=== PATIENT | female | born 1955 | race Caucasian/White ===

== ENCOUNTER → 2021-09-21 17:47 | Outpatient (CLI) | payer OTHER, SELFPAY ==
--- NOTE | ~2021-09-21 | XR_ITS ---
XR knee LT 2V DATE: 09/21/2021 18:37 INDICATION: Bilateral knee pain TECHNIQUE: AP and lateral views COMPARISON: None FINDINGS: There is prominent joint space narrowing and spurring at the patellofemoral compartment con sistent with severe osteoarthritis. There is mild loss of joint space in particular spurring at the m edial and lateral compartments. Diffuse osteopenia. No fracture or dislocation or joint effusion, periosteal reaction or bone destruction. No radiopaque intra-articular loose body or chondrocalcinosis is evident. IMPRESSION: Osteoarthritis, particularly at the patellofemoral compartment Osteopenia Reviewed, dictated and finalized at location A. URE PRESS SET UP OPERATOR
--- NOTE | ~2021-09-21 | XR_ITS ---
XR lumbar spine min 4V DATE: 09/21/2021 18:37 INDICATION: Low back pain. Lumbago. TECHNIQUE: AP, lateral, coned lateral lumbosacral views. Standing flexion and extension lateral views . COMPARISON: 05/04/2017 lumbar spine FINDINGS: There is diffuse osteopenia. There is slight levoscoliosis of the lumbar spine. There is normal alignment of the lumbar spine. No fracture or bone destruction. The lumbar pedicles are intact. There is approximately 3.5 mm anterolisthesis at L3-4 and flexion, virtually completely reduced in ex tension. There is severe degenerative disc disease at L4-5 and L5-S1. The sacroiliac joints are intact. Incidentally noted is a large calcified uterine fibroid measuring up to 7 cm transverse dimension. IMPRESSION: Osteopenia Slight levoscoliosis 3.5 mm anterolisthesis at L3-4 in flexion, largely reduced in extension Severe degenerative disc disease at L4-5 and L5-S1 Reviewed, dictated and finalized at location A. WARPER
--- NOTE | ~2021-09-21 | MR_ITS ---
EXAMINATION: MR lumbar spine wo con DATE: 09/21/2021 18:48 INDICATION: Low back pain radiates down left leg. TECHNIQUE: Magnetic resonance imaging (MRI) of the lumbar spine was performed without intravenous con trast. Sequences included sagittal T2-weighted FSE, sagittal T2-weighted FS FSE, sagittal T1-weighted FSE, and axial T2-weighted FSE. COMPARISON: Lumbar spine MRI 05/14/17, radiographs 09/21/2021 FINDINGS: Partially visualized are fibroids in the uterus. There is 3 mm retrolisthesis of L4 on L5. There is mild height loss of L5 vertebral body posteriorly. There is mildly decreased disc height at L3-L4 and severely decreased disc height at L4-L5 and L5-S1 with endplate remodeling. The distal spin al cord signal intensity is normal. The conus medullaris is at T12-L1. The following disc levels are specifically discussed: L1-L2: The disc does not extend beyond the endplate margin. There is no facet joint osteoarthritis. T here is no neural foraminal stenosis. There is no central canal stenosis. L2-L3: The disc is bulging. There is mild bilateral facet joint osteoarthritis. There is mild bilater al neural foraminal stenosis. There is mild central canal stenosis. L3-L4: The disc is bulging and has an annular fissure. There is moderate bilateral facet joint osteoa rthritis. There is mild right and moderate left neural foraminal stenosis. There is mild central michele l stenosis. L4-L5: The disc is bulging and has an annular fissure. There is severe right and moderate left facet joint osteoarthritis. There is moderate bilateral neural foraminal stenosis. There is mild central ca nal stenosis. L5-S1: The disc is bulging and has an annular fissure. There is severe bilateral facet joint osteoart hritis. There is mild bilateral neural foraminal stenosis. There is mild central canal stenosis. IMPRESSION: 1. Severe lower lumbar spondylosis, worsened from 05/14/17. 2. Uterine fibroids. Reviewed, dictated and finalized at location A. R BUSINESS DEVELOPER
--- NOTE | ~2021-09-21 | XR_ITS ---
XR knee RT 2V DATE: 09/21/2021 18:37 INDICATION: Bilateral knee pain TECHNIQUE: Standing AP and lateral views COMPARISON: None FINDINGS: There is moderate loss of medial compartment joint space height. There is mild periarticula r spurring of the patella. No fracture or dislocation or joint effusion. No periosteal reaction or bone destruction, radiopaque intra-articular loose body or chondrocalcinosis is evident. IMPRESSION: Osteoarthritis Reviewed, dictated and finalized at location A. ICAL SUPERVISOR IMPRESSION: Osteoarthritis
== END ==
PROVIDERS: PCP Nurse Practitioner Family
DX: M47.896 Other spondylosis, lumbar region (principal); D25.9 Leiomyoma of uterus, unspecified; M85.88 Other specified disorders of bone density and structure, other site; M51.37 Other intervertebral disc degeneration, lumbosacral region; M51.36 Other intervertebral disc degeneration, lumbar region; M85.862 Other specified disorders of bone density and structure, left lower leg; M17.0 Bilateral primary osteoarthritis of knee
CPT/HCPCS: 72110; 72148; 73560

== ENCOUNTER → 2022-03-11 12:55 | Outpatient (CLI) | payer MEDICARE, SELFPAY ==
--- NOTE | ~2022-03-11 | US_ITS ---
EXAMINATION: US transvaginal DATE: 03/11/2022 13:21 INDICATION: Uterine fibroid Comparison:Uterine fibroids TECHNIQUE: Multiple endovaginal sonographic images of the pelvis performed. FINDINGS: The uterus measures 6.6 x 3.2 x 3.6 cm. There are multiple uterine fibroids some of which a re partially calcified measuring up to 7.1 x 4.5 x 4.5 cm. The endometrial complex measures 5 mm. The ovaries are not visualized. There is no free fluid in the pelvis. There are no abnormal masses s een on either side. IMPRESSION: 1. Multiple uterine fibroids, largest measuring up to 7.1 cm maximum dimension. Reviewed, dictated and finalized at location B.
== END ==
PROVIDERS: PCP Nurse Practitioner Family; Visit Provider Nurse Practitioner Family
DX: D25.9 Leiomyoma of uterus, unspecified (principal)
CPT/HCPCS: 76830

== ENCOUNTER 2022-07-09 09:29 | Outpatient (CLI) | payer MEDICARE, SELFPAY ==
--- NOTE | ~2022-07-09 | MM_ITS ---
EXAMINATION: MM screening odalis BI w skye HISTORY: Screening TECHNIQUE: Craniocaudal and mediolateral oblique 3-D tomosynthesis images were obtained and synthetic 2-D images were generated. CAD analysis was submitted and interpreted. COMPARISON: Comparison to multiple prior studies sequentially, with oldest reviewed study dated 04/25. BREAST PARENCHYMAL COMPOSITION: There are scattered areas of fibroglandular density. FINDINGS: There is no evidence of suspicious mass, calcification, or architectural distortion to sugg est malignancy in either breast. There has been no suspicious interval change. IMPRESSION: 1. No mammographic evidence of malignancy. 2. Recommend routine screening mammography in one year. BI-RADS Category 1: Negative Reviewed, dictated and finalized at location B. S AND MARKETING COORDINATOR
== END 2022-07-09 09:30 | disposition home or self-care (01) ==
LOC: ANHIMG 09:30
PROVIDERS: PCP Nurse Practitioner Family; Visit Provider Nurse Practitioner Family
DX: Z12.31 Encounter for screening mammogram for malignant neoplasm of breast (principal)
CPT/HCPCS: 77063; 77067

== ENCOUNTER 2023-05-07 09:54 | Outpatient (CLI) | payer MEDICARE, SELFPAY ==
--- NOTE | ~2023-05-07 | XR_ITS ---
EXAMINATION: XR knee RT min 4V DATE: 05/07/2023 10:21 INDICATION: Right knee joint pain. TECHNIQUE: 4 views of right knee including standing views were obtained. COMPARISON: Right knee radiographs 09/21/2021 FINDINGS: Bone alignment is normal. No fracture. There is mild tricompartmental osteoarthritis. No kn ee joint effusion. IMPRESSION: 1. Mild right knee osteoarthritis. Reviewed, dictated and finalized at location A.
== END 2023-05-07 09:55 | disposition home or self-care (01) ==
PROVIDERS: PCP Nurse Practitioner Family; Visit Provider Nurse Practitioner Family
DX: M17.11 Unilateral primary osteoarthritis, right knee (principal)
CPT/HCPCS: 73564

== ENCOUNTER 2023-12-01 07:51 | Outpatient (CLI) | payer MEDICARE, SELFPAY ==
--- NOTE | ~2023-12-01 | MM_ITS ---
EXAMINATION: MM screening odalis BI w skye HISTORY: Screening mammogram TECHNIQUE: Craniocaudal and mediolateral oblique 3-D tomosynthesis images were obtained and synthetic 2-D images were generated. CAD analysis was submitted and interpreted. COMPARISON: 07/09/2022 bilateral screening mammogram BREAST PARENCHYMAL COMPOSITION: There are scattered areas of fibroglandular density. FINDINGS: Biopsy marker on the left; history of prior benign left breast biopsy. There is no evidence of suspicious mass, calcification, or architectural distortion to suggest malignancy in either breas t. There has been no suspicious interval change. IMPRESSION: 1. No mammographic evidence of malignancy. 2. Recommend routine screening mammography in one year. BI-RADS Category 1: Negative Reviewed, dictated and finalized at location B.
== END 2023-12-01 07:52 | disposition home or self-care (01) ==
PROVIDERS: PCP Nurse Practitioner Family; Visit Provider Nurse Practitioner Family
DX: Z12.31 Encounter for screening mammogram for malignant neoplasm of breast (principal)
CPT/HCPCS: 77063; 77067

== ENCOUNTER 2023-12-02 08:06 | Outpatient (CLI) | payer MEDICARE, SELFPAY ==
--- NOTE | ~2023-12-02 | US_ITS ---
Limited Abdominal Sonogram: Real-time sonographic imaging of the right upper quadrant was performed. Clinical History: Gallbladder polyp Findings: The liver appears normal with no evidence of mass lesion or bile duct dilatation. Main por selam vein demonstrates normal direction of flow. The gallbladder is well distended, and demonstrates a pparent 1.1 cm and 0.4 cm gallbladder wall polyps, which are not mobile and echogenic.. The common bi le duct measures 3 mm. The visualized pancreas, aorta, and IVC are unremarkable. Impression: Gallbladder wall polyps, as above, largest measuring 1.1 cm. Reviewed, dictated and finalized at location M. Impression: Gallbladder wall polyps, as above, largest measuring 1.1 cm.
== END 2023-12-02 08:07 ==
LOC: MICIMG 08:07
PROVIDERS: PCP Nurse Practitioner Family; Visit Provider Nurse Practitioner Family
DX: K82.4 Cholesterolosis of gallbladder (principal)
CPT/HCPCS: 76705

== ENCOUNTER 2024-03-20 09:30 | Emergency (ER) | payer MEDICARE, SELFPAY ==
[2024-03-20] VITALS (10 sets, daily range): BP systolic 104–121; BP diastolic 62–66; PULSE 82–96; RESP 12–18; TEMP 36.2; O2SAT 97–100
--- NOTE | ~2024-03-20 | XR_ITS ---
Clinical Indication: Chest pain PA and lateral views of the chest: Comparison: None Findings: The lungs are clear, without evidence of focal consolidation or pleural effusion. Cardiome diastinal silhouette is within normal limits. Bones and soft tissues are unremarkable. Impression: Normal chest. Reviewed, dictated and finalized at location . Impression: Normal chest.
--- NOTE | ~2024-03-20 | CT_ITS ---
Clinical Indication: Chest pain, recent surgery CT Scan of the Chest with Contrast: Technique: Contiguous sections were acquired throughout the chest after intravenous administration of 100 cc of Omnipaque 350. Dose reduction technique was used on this scan by utilizing automated expos ure control and iterative reconstruction technique. The dose-length product (DLP) was 368.24 mGy-cm. Findings: There is no evidence of any significant mediastinal, hilar or axillary lymphadenopathy. There is no f illing defect in the pulmonary arterial tree to suggest pulmonary embolus. There is no evidence of ao rtic dissection or aneurysm. There is no evidence of pleural or pericardial effusion. The lungs are clear. No pulmonary nodules or infiltrates are noted. Images through the upper abdomen reveal no abnormalities. Impression: No evidence of pulmonary embolus, aortic dissection, or aortic aneurysm. Clear lungs. Reviewed, dictated and finalized at [facility]. Impression: No evidence of pulmonary embolus, aortic dissection, or aortic aneurysm. Clear lungs.
--- NOTE | 2024-03-20 09:33 | ECG_ITS ---
Test Date: 2024-03-20 09:39:53 Measurements Intervals Finger Rate: 96 P: 48 SD: 139 QRS: 44 QRSD: 79 T: 61 QT: 318 QTc: 403 Interpretive Statements SINUS RHYTHM No previous ECG available for comparison Electronically Signed On 03-20-2024 16:12:42 CDT by Vicki De Leon M.D.
[2024-03-20 09:52] LABS: Basophils Absolute Auto 0.1 K/mm3 (0.0-0.1); Basophils Percent Auto 0.9 % (0.2-1.2); Eosinophils Absolute Auto 0.4 K/mm3 (0-0.3); Eosinophils Percent Auto 5.6 % (0-4.4); Hemoglobin 12.7 g/dL (12.0-15.0); Immature Granulocyte Absolute 0.01 K/mm3 (0.00-0.031); Immature Granulocyte Percent A 0.1 % (0-0.5); Lymphocytes Percent Auto 39.3 % (18.3-44.2); Mean Corpuscular HGB Conc 32.6 g/dl (32-36); Mean Corpuscular Hemoglobin 27.3 pg (26-34); Mean Corpuscular Volume 83.9 fl (80-100); Mean Platelet Volume 9.5 fl (7.4-10.4); Monocytes Absolute Auto 0.3 K/mm3 (0.1-0.6); Monocytes Percent Auto 4.6 % (2.6-8.5); Neutrophils Absolute Auto 3.6 K/mm3 (1.3-6.7); Neutrophils Percent Auto 49.5 % (45.5-73.1); Platelet Count Result 304 k/mm3 (150-375); Red Blood Count 4.65 M/mm3 (4.2-5.4); Red Cell Distribution Width 17.2 % (11.5-14.5); White Blood Count 7.4 K/mm3 (4.5-10.0)
[2024-03-20 10:06] LABS: Prothrombin Time 13.5 Seconds (11.1-14.7)
[2024-03-20 10:07] LABS: Partial Thromboplastin Time 26.1 Seconds (22.3-36.8)
[2024-03-20 10:08] LABS: Alanine Aminotransferase 18 U/L (6-35); Albumin Level 4.6 g/dL (3.5-5.1); Alkaline Phosphatase 76 U/L (38-126); Anion Gap 13 mmol/L (4-12); Aspartate Amino Transferase 22 U/L (14-36); Bilirubin,Total 0.4 mg/dL (0.2-1.3); Blood Urea Nitrogen 26 mg/dL (7-17); Calcium 9.3 mg/dL (8.4-10.2); Carbon Dioxide 24 mmol/L (22-30); Chloride 99 mmol/L (98-107); Estimated CRCL calculation 33 ml/min; Estimated Glomerular Filt Rate 38; Glucose 168 mg/dL (65-110); Lipase 411 U/L (23-300); Potassium 4.4 mmol/L (3.4-5.0); Sodium 136 mmol/L (137-145)
[2024-03-20 10:19] LABS: Troponin I < 0.012 ng/mL (0.000-0.034)
--- NOTE | 2024-03-20 11:25 | PC.NURSE ---
Pt reports recently getting 2 iron transfusions, within 5 days of each other, the last one on 02/28.
--- NOTE | 2024-03-20 11:26 | PC.NURSE ---
Pt reports having her gallbladder removed on 03/08.
--- NOTE | 2024-03-20 11:42 | ED.CHESTPAIN ---
HPI - Chest Pain General Chief Complaint: Chest Pain Stated Complaint: chest pain/ jaw pain Time Seen by Provider: 03/20/24 11:32 History of Present Illness HPI narrative: This is a 68-year-old female with a past medical history significant for hypertension, hyperlipidemia, diabetes. Today she presents to the emergency department for evaluation of chest pain. Chest pain is sporadic in nature not brought on by any kind of exertion, eating, positional changes. She states that has been present about 2 weeks and lasts several seconds before going away spontaneously. No associated difficulty breathing, back pain, abdominal pain. She recently underwent a laparoscopic cholecystectomy 2 weeks prior prior to the onset of her symptoms. She does endorse some nauseousness occasion without vomiting. She states that the pain started somewhat radiating into her jaw and she saw her dentist who states she does not have any kind of issues with her teeth at this time. Denies any other recent illnesses or procedures. No history of DVT or PE does not take any blood thinner medications. Related Data Home Medications Medication Instructions Recorded Confirmed glimepiride 4 mg tablet 4 mg PO QAM 03/25/22 11/18/23 metformin 500 mg tablet,extended 1,000 mg PO BID 10/14/23 11/18/23 release 24 hr Allergies Allergy/AdvReac Type Severity Reaction Status Date / Time No Known Allergies Allergy Mild Verified 03/20/24 09:31 Review of Systems Review of Systems: As [facility] Past Medical History Medical History Anxiety Degenerative joint disease of knee Endometrial cancer determined by uterine biopsy Essential hypertension Gynecologic exam normal High blood cholesterol High blood pressure Hyperlipidemia Latent autoimmune diabetes in adults, managed as type 2 Left knee pain Lesion of [place] kidney Type 2 diabetes mellitus with hyperglycemia Surgical History Surgical History History of delivery History of tubal ligation Family History Family History Other Breast cancer Cerebrovascular accident Hypertension Social History Social History Smoking status: Never smoker Alcohol intake: never Substance use: never Substance use type: does not use Do You Feel Safe in your Home?: Yes Lack of Transportation: No Lack of Food: Never True Current Housing: I Have Housing Concerned About Future Housing: No Difficulty Paying Gas/Electric Bills: No Difficulty Paying for Meds: No Currently Unemployed: No Education: Don't Know Difficulty w/ Childcare or Family Care: No Living arrangements: with family Occupation/Education: occupation 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 Mucous membranes moist. NECK: Supple. CHEST: [Clear to auscultation. No respiratory distress.] HEART: [Regular rate and rhythm]. No murmur heard. [Normal peripheral pulses.] ABDOMEN: [Soft, nondistended], [nontender], [No rigidity or guarding] some bruising noted in the abdominal wall near the incision sites but the incisions are clean, dry, intact and well healing without any tenderness or drainage EXTREMITIES: Normal range of motion. [No edema.] SKIN: Warm, dry, no rash. NEURO: [No focal deficits]. Alert and oriented [x3.] PSYCH: [Normal mood and affect.]
[2024-03-20] MEDS: LACTATED RINGERS 1,000 ML 999 ML IV CONT (11:49)
--- NOTE | 2024-03-20 11:52 | PC.NURSE ---
Pt refusing Aspirin at this time. Pt states she is cautious about her kidneys. EDP Dr. Jami guzmán.
--- NOTE | 2024-03-20 12:48 | ECG_ITS ---
Test Date: 2024-03-20 12:50:31 Measurements Intervals [place] Rate: 81 P: 19 [place]: 183 QRS: 35 QRSD: 80 T: 40 QT: 363 QTc: 421 Interpretive Statements SINUS RHYTHM WITHIN NORMAL LIMITS Compared to ECG 03/20/2024 09:39:53 NO SIGNIFICANT DIFFERENCE Electronically Signed On 03-20-2024 18:00:03 CDT by Dalton Pozo M.D.
[2024-03-20 13:16] LABS: Troponin I < 0.012 ng/mL (0.000-0.034)
[2024-03-20 17:52] LABS: Glucose Point of Care 65 mg/dl (65-105)
== END 2024-03-20 14:47 | disposition home or self-care (01) ==
PROVIDERS: Emergency Provider Student in an Organized Health Care Education/Training Program; PCP Nurse Practitioner Family
DX: R07.9 Chest pain, unspecified (principal); I10 Essential (primary) hypertension; E13.9 Other specified diabetes mellitus without complications; E78.00 Pure hypercholesterolemia, unspecified; M17.9 Osteoarthritis of knee, unspecified; Z79.84 Long term (current) use of oral hypoglycemic drugs; Z79.85 Long-term (current) use of injectable non-insulin antidiabetic drugs; Z79.899 Other long term (current) drug therapy
CPT/HCPCS: 36415; 71046; 71275; 80053; 82948; 83690; 84484; 85025; 85610; 85730; 93005; 96360; 99284; J7120; Q9967

== ENCOUNTER 2024-06-29 09:19 | Emergency (ER) | payer MEDICARE, SELFPAY ==
[2024-06-29 09:30] VITALS: BP 96/61; PULSE 90; RESP 18; TEMP 36.6; O2SAT 100
--- NOTE | 2024-06-29 09:54 | ED_ITS ---
HPI - URI/Sore Throat General Chief Complaint: Upper Respiratory Infection Stated Complaint: Sinus Time Seen by Provider: 06/29/24 09:54 Source: patient, RN notes reviewed and old records reviewed Mode of arrival: ambulatory Limitations: no limitations History of Present Illness HPI Narrative: Patient presents with complaints of 3 weeks of sinus pain and pressure. She reports postnasal drainage is causing sore throat. She does have a slight cough. She has been taking [place] for her symptoms for couple of days with minimal relief. She denies fever. She does report lack of energy. She has no other complaints. She is in no distress at this time Related Data Home Medications Medication Instructions Recorded Confirmed metformin 500 mg tablet,extended 1,000 mg PO BID 10/14/23 06/29/24 release 24 hr Allergies Allergy/AdvReac Type Severity Reaction Status Date / Time No Known Allergies Allergy Mild Verified 06/29/24 09:34 Review of Systems Review of Systems: All systems reviewed & are unremarkable except as noted in HPI and below Constitutional: Constitutional: Reports no additional constitutional complaints and Reports lethargy ENT: Reports system reviewed and no additional complaints, except as documented, Reports as per HPI, Reports sinus pain, Reports sinus pressure and Reports sore throat Cardiovascular: Cardiovascular: Reports no additional cardiovascular complaints Respiratory: Respiratory: Reports no additional respiratory complaints and Reports cough Gastrointestinal: Gastrointestinal: Reports no additional gastrointestinal complaints PMFSH Past Medical History Medical History Anxiety Degenerative joint disease of knee Endometrial cancer determined by uterine biopsy Essential hypertension Gynecologic exam normal High blood cholesterol High blood pressure Hyperlipidemia Latent autoimmune diabetes in adults, managed as type 2 Left knee pain Lesion of [place] kidney Type 2 diabetes mellitus with hyperglycemia Surgical History Surgical History History of delivery History of tubal ligation Hx laparoscopic cholecystectomy Family History Family History Other Breast cancer Cerebrovascular accident Hypertension Social History Social History Social History: 04/30/24 patient declined SDOH Smoking status: Never smoker Alcohol intake: never Substance use: never Substance use type: does not use Do You Feel Safe in your Home?: Yes Lack of Transportation: No Lack of Food: Never True Current Housing: I Have Housing Concerned About Future Housing: No Difficulty Paying Gas/Electric Bills: No Difficulty Paying for Meds: No Currently Unemployed: No Education: Don't Know Difficulty w/ Childcare or Family Care: No Living arrangements: with family Occupation/Education: occupation 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 There is no relevant family history pertinent to the patient complaint. Exam Const: General: cooperative, no acute distress, alert and awake Orientation/consciousness: oriented to person, oriented to place and oriented to time HENMT: Head: normal to inspection Ears: TM abnormal with fluid behind the TM on the left Face/Nose/Sinus: Abnormal mucous membranes and turbinates present boggy and Facial tenderness on exam of face and sinuses Mouth: Yes moist mucous membranes Resp: Effort & Inspection: normal respiratory effort and able to speak in complete sentences Auscultation: clear to auscultation bilaterally, no crackles, no rales, no rhonchi and no wheezes Cardio: Palpation: normal PMI Rate: regular rate Rhythm: regular rhythm Heart sounds: S1 normal heart sound present and S2 normal heart sound present Neuro: General: oriented to person, oriented to place and oriented to time Cranial nerves: Yes CN's II-XII intact bilaterally Psych: Appearance: grossly normal Thought process: Normal thought process present Insight: Good insight present (Psych) Judgement: Good judgement present (Psych) Course Course Level of Care: Express Care Visit Vital Signs Vital signs: Vital Signs Temperature 97.9 F 06/29/24 09:30 Pulse Rate 90 06/29/24 09:30 Respiratory Rate 18 06/29/24 09:30 Blood Pressure 96/61 L 06/29/24 09:30 Pulse Oximetry 100 06/29/24 09:30 Oxygen Delivery Room Air 06/29/24 09:30 Temperature 97.9 F 06/29/24 09:30 Pulse Rate 90 06/29/24 09:30 Respiratory Rate 18 06/29/24 09:30 Blood Pressure 96/61 L 06/29/24 09:30 Pulse Oximetry 100 06/29/24 09:30 Oxygen Delivery Room Air 06/29/24 09:30 Reviewed MDM - URI/Sore Throat MDM Narrative Medical decision making narrative: Patient with 3 weeks of symptoms, treated sinusitis. Patient nontoxic appearing, stable for discharge home on p.o. antibiotic therapy Differential Diagnosis Differential diagnosis: Likely upper respiratory infection, otitis media and sinusitis Medical Records Attestation: I reviewed the patient's medical records. Discharge Plan Discharge Clinical Impression: Sinusitis Qualifiers: Sinusitis location: maxillary Chronicity: acute Recurrence: not specified as recurrent Qualified Code(s): J01.00 - Acute maxillary sinusitis, unspecified Patient Disposition: Home, Self-Care Condition: Stable Instructions: Antibiotic Form, Sinusitis (ED) Additional Instructions: Take medications as prescribed. Use Flonase per package instructions. Follow- up with primary care provider. Emergency department for new or worse symptoms Patient Language: Georgian Prescriptions: New amoxicillin-pot clavulanate 875-125 mg tablet 1 tablet PO Q12H Qty: 20 0RF No Action metformin 500 mg tablet extended release 24 hr 1,000 mg PO BID pravastatin 40 mg tablet 40 mg PO DAILY Qty: 90 3RF losartan 100 mg tablet 100 mg PO DAILY Qty: 90 3RF Mounjaro 12.5 mg/0.5 mL pen injector 12.5 mg subcut WEEKLY Qty: 2 2RF glimepiride 4 mg tablet 4 mg PO .q hs Qty: 90 1RF Hold Instructions: Patient Condition Rx Instructions: administer with breakfast escitalopram oxalate 10 mg tablet 10 mg PO DAILY Qty: 90 1RF dapagliflozin propanediol [Farxiga] 10 mg tablet See Rx Instructions .ROUTE .COMPLEX Qty: 90 3RF Dose Instruction: TAKE 1 TABLET BY MOUTH DAILY Rx Instructions: TAKE 1 TABLET BY MOUTH DAILY hydrochlorothiazide 12.5 mg capsule 12.5 mg PO DAILY Qty: 90 1RF Follow-up/Referrals: Rose Bright APRN [Primary Care Provider] - 2 Weeks Time of Disposition: 10:15
== END 2024-06-29 10:25 | disposition home or self-care (01) ==
PROVIDERS: Emergency Provider Nurse Practitioner Family; PCP Nurse Practitioner Family
DX: J01.00 Acute maxillary sinusitis, unspecified (principal); I10 Essential (primary) hypertension; E78.00 Pure hypercholesterolemia, unspecified; E11.9 Type 2 diabetes mellitus without complications; Z79.84 Long term (current) use of oral hypoglycemic drugs; Z85.42 Personal history of malignant neoplasm of other parts of uterus
CPT/HCPCS: 99213; G0463

== ENCOUNTER 2025-01-15 09:12 | Outpatient (CLI) | payer MEDICARE, SELFPAY ==
--- NOTE | ~2025-01-15 | MM_ITS ---
EXAMINATION: MM screening odalis BI w skye HISTORY: Screening mammogram TECHNIQUE: Craniocaudal and mediolateral oblique 3-D tomosynthesis images were obtained and synthetic 2-D images were generated. CAD analysis was submitted and interpreted. COMPARISON: 12/01/2023, 07/09/2022 BREAST PARENCHYMAL COMPOSITION:Dense: The breasts are heterogeneously dense, which may obscure small masses. FINDINGS: No suspicious mass, calcification, or architectural distortion are identified in either pepper ast to suggest malignancy. There has been no suspicious interval change. IMPRESSION: No mammographic evidence of malignancy. Recommend routine screening mammography in one year. BI-RADS Category 1: Negative Reviewed, dictated and finalized at location .
== END 2025-01-15 09:13 | disposition home or self-care (01) ==
LOC: ANHIMG 09:13
PROVIDERS: PCP Nurse Practitioner Family; Visit Provider Nurse Practitioner Family
DX: Z12.31 Encounter for screening mammogram for malignant neoplasm of breast (principal)
CPT/HCPCS: 77063; 77067

== ENCOUNTER 2025-02-17 09:57 | Emergency (ER) | payer MEDICARE, SELFPAY ==
--- NOTE | 2025-02-17 10:06 | ED_ITS ---
HPI - Wound/Laceration General Chief Complaint: Wound/Laceration Stated Complaint: cut on left finger Time Seen by Provider: 02/17/25 10:08 Source: patient, RN notes reviewed and old records reviewed Mode of arrival: ambulatory Limitations: no limitations History of Present Illness HPI narrative: 61-year-old female presents to the [facility] with a laceration to the left ring finger. States it occurred approximately 8:00 p.m. last night approximately 14 hours prior to arrival. Unknown last Tdap. Bleeding is controlled. Patient reports that last night she was reaching into a drawer and cut herself on a knife. Applied Neosporin and a bandage to the area Related Data Allergies Allergy/AdvReac Type Severity Reaction Status Date / Time No Known Allergies Allergy Mild Verified 02/17/25 10:31 Review of Systems Review of Systems: All systems reviewed & are unremarkable except as noted in HPI and below Constitutional: Constitutional: Reports no additional constitutional complaints Musculoskeletal: Musculoskeletal: Reports as per HPI Integumentary/Breasts: Skin/Breast: Reports as per HPI PMFSH Past Medical History Medical History Gynecologic exam normal Essential hypertension Hyperlipidemia Lesion of curyung kidney Type 2 diabetes mellitus with hyperglycemia Anxiety Latent autoimmune diabetes in adults, managed as type 2 Degenerative joint disease of knee Left knee pain Endometrial cancer determined by uterine biopsy High blood cholesterol High blood pressure Surgical History Surgical History Hx laparoscopic cholecystectomy History of tubal ligation History of delivery Family History Family History Other Breast cancer Cerebrovascular accident Hypertension Social History Social History Social History: 09/11/24 patient declined SDSC Smoking status: Never smoker Alcohol intake: never Substance use: never Substance use type: does not use Do You Feel Safe in your Home?: Yes Lack of Transportation: No Lack of Food: Never True Current Housing: I Have Housing Concerned About Future Housing: No Difficulty Paying Gas/Electric Bills: No Difficulty Paying for Meds: No Currently Unemployed: No Education: Don't Know Difficulty w/ Childcare or Family Care: No Living arrangements: with family Occupation/Education: occupation 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 There is no relevant family history pertinent to the patient complaint. Exam Const: General: cooperative, healthy appearing, comfortable, no acute distress, well developed, alert and well nourished Nutritional Appearance: well nourished Orientation/consciousness: patient oriented x3 Limitations: no limitations HENMT: Head: normal to inspection Eyes: General: appearance normal, both eyes and all related structures Alig nment and Position: alignment normal Neck: Neck: normal visual inspection, full ROM, no lymphadenopathy and no meningeal signs Chest: Chest palpation & inspection: normal inspection of the chest Resp: Effort & Inspection: normal respiratory effort and able to speak in complete sentences Cardio: Rate: regular rate Skin: General skin exam: normal color and no rashes or lesions noted Wounds: wounds noted Other: Flap of skin to the lateral aspect of the 4th finger left hand. The palmar aspect 2 cm open area. Bleeding controlled. Neuro: General: patient oriented x3, gait normal, moves all extremities and no meningeal signs Cognition (Neuro): normal cognition Speech: normal speech Gait exam (Neuro): Normal gait present Extrem: General: normal to inspection, full ROM, capillary refill normal and normal gait Left upper extremity: hand laceration Other: Full range of motion to the PIP DIP Psych: Appearance: grossly normal and well kempt Mental Status: mental status grossly normal Speech and movement: Normal speech and movement present and Clear speech present Affect: normal affect Attitude: cooperative Course Course Level of Care: Express Care Visit Vital Signs Vital signs: Vital Signs Temperature 98.3 F 02/17/25 10:08 Pulse Rate 82 02/17/25 10:08 Respiratory Rate 16 02/17/25 10:08 Blood Pressure 131/66 02/17/25 10:08 Pulse Oximetry 100 02/17/25 10:08 Oxygen Delivery Room Air 02/17/25 10:08 Temperature 98.3 F 02/17/25 10:08 Pulse Rate 82 02/17/25 10:08 Respiratory Rate 16 02/17/25 10:08 Blood Pressure 131/66 02/17/25 10:08 Pulse Oximetry 100 02/17/25 10:08 Oxygen Delivery Room Air 02/17/25 10:08 Reviewed Procedures Laceration Laceration 1: Date: 02/17/25 Time: 10:45 Site: hand Side (If applicable): left Size (cm): 2 Description: linear Depth: simple, single layer Local Anesthetic: lidocaine 1% Amount of anesthesia used (mL): 3 Pre-repair: wound explored and irrigated (200) ====== Skin Level ====== Skin layer closed with: nylon Size (cm): 5-0 Number of sutures: 2 Technique: simple, interrupted ====== Subcutaneous Layer ====== ====== Muscle Layer ====== ====== Tendon Layer ====== Dressing: Due to the nature of the wound, gaping was discussed brain the edges closer together for better chance of healing. Wound had been open for 14 hours. Irrigated and soaked with wound cleanser and saline. Discussed procedure of bringing the wound together, not completely closing due to risk of infection, verbal consent obtained. Base of finger cleaned with Betadine, digital block performed. Anesthesia achieved. Had 2 sutures placed without issue. Brought edges together but not completely closed. Patient tolerated procedure well MDM - Wound/Laceration MDM Narrative Medical decision making narrative: Patient sitting in exam room. Patient presents with laceration to the finger Unknown last Tdap, Tdap updated Placed 2 sutures to bring wound closer together for better chance of healing but not completely close due to risk of infection Patient is appropriate for outpatient treatment with close follow-up Discharge instructions reviewed with patient, as well as provided in writing per nursing staff. The instructions also include specific and strict return/GO TO THE ER as well as f/u information. All questions have been answered, and the patient deny any further questions with discharge and discharge plan. Some parts of this dictation were generated by voice recognition software and may contain typographical and/or grammatical inaccuracies. Differential Diagnosis Differential diagnosis: Likely laceration, abrasion and avulsion of skin Critical Care Time Critical Care Time Critical Care Time: No Discharge Plan Discharge Clinical Impression: Finger laceration Patient Disposition: Home Condition: Stable Instructions: Antibiotic Form, Finger Laceration (ED) Additional Instructions: Wash area twice daily with warm soapy water, pat dry. When not at home keep it covered. When at home try leaving open to air couple hours a day Take antibiotic as prescribed reduce the chances of infection Follow-up with primary care provider in 10-14 days for suture removal Patient Language: Slovak Prescriptions: New cephalexin 500 mg capsule 500 mg PO Q12H Qty: 14 0RF No Action dapagliflozin propanediol [Farxiga] 10 mg tablet See Rx Instructions .ROUTE .COMPLEX Qty: 90 3RF Dose Instruction: TAKE 1 TABLET BY MOUTH DAILY Rx Instructions: TAKE 1 TABLET BY MOUTH DAILY pravastatin 40 mg tablet 40 mg PO DAILY Qty: 90 3RF losartan 100 mg tablet 100 mg PO DAILY Qty: 90 3RF Mounjaro 12.5 mg/0.5 mL pen injector 12.5 mg subcut WEEKLY Qty: 6 2RF hydroxyzine HCl 25 mg tablet 25 mg PO TID PRN (Reason: anxiety) Qty: 90 2RF glimepiride 4 mg tablet 4 mg PO .q hs Qty: 90 1RF Rx Instructions: administer with breakfast escitalopram oxalate 10 mg tablet 10 mg PO DAILY Qty: 90 1RF metformin 500 mg tablet extended release 24 hr 1,000 mg PO DAILY Qty: 360 0RF hydrochlorothiazide 12.5 mg capsule 12.5 mg PO DAILY Qty: 90 1RF Follow-up/Referrals: Rose Bright APRN [Primary Care Provider] - 2 Weeks ([facility] care follow up Suture removal) Time of Disposition: 10:59
[2025-02-17 10:08] VITALS: BP 131/66; PULSE 82; RESP 16; TEMP 36.8; O2SAT 100
[2025-02-17] MEDS: TETANUS/DIPHTHERIA TOXOIDS ADSORB 0.5 ML SYRINGE (*BKC) IM (10:26)
[2025-02-17] MEDS: LIDOCAINE 1% LOCAL INJ 2 ML AMPUL 4 ML INFILTRATE (11:10)
== END 2025-02-17 11:00 | disposition home or self-care (01) ==
PROVIDERS: Emergency Provider Nurse Practitioner; PCP Nurse Practitioner Family
DX: S61.215A Laceration without foreign body of left ring finger without damage to nail, initial encounter (principal); W26.0XXA Contact with knife, initial encounter; Z23 Encounter for immunization; I10 Essential (primary) hypertension; E78.5 Hyperlipidemia, unspecified; E78.00 Pure hypercholesterolemia, unspecified; Z85.42 Personal history of malignant neoplasm of other parts of uterus; E13.9 Other specified diabetes mellitus without complications; Z79.84 Long term (current) use of oral hypoglycemic drugs; Z79.85 Long-term (current) use of injectable non-insulin antidiabetic drugs; F41.9 Anxiety disorder, unspecified
CPT/HCPCS: 12001; 90471; 90714; 99213; G0463; J2003

== ENCOUNTER 2025-04-29 09:43 | Outpatient (CLI) | payer MEDICARE, SELFPAY ==
--- OUTSIDE RECORDS SUMMARY | 2000-11-07 11:00 | XMS_ITS | Continuity of Care Document ---
Author Organization [facility] Address [address] [place] [address] Phone Care Team Providers Care Loan Documents Closer Name Role Phone Riya Coyle Unavailable Unavailable Advance Directives Directive Yes / No Effective Date File Name No Information Encounters Encounter Description Practice Location Reason(s) For Visit Diagnoses Date Provider Providers Copied on Encounter [facility], [address] [place], [place], [id number], [place] tel:[phone] [facility] No Information [address] Jonna Ritter. [address] , [address], [place], [address], [place]. tel:[phone] Family History Family Member Type Diagnosis Age At Onset No Information Payers Payer name Insurance type Covered alliance party ID Authoriza tion(s) No Information Social History Type Description Quantity Date Captured Comments Sex Female Smoking Status No Information Chief Complaint And Reason For Visit No Information Reason For Referral Reason For Referral No Information History Of Present Illness Encounter Date Complaint History Of Prese nt Illness No Information Functional Status Date Functional Assessmen t No Information Instructions Date Instruction Additional Infor mation No Information Assessments Type Assessment Date No Information Patient Care Teams Name Effective Dates (start - stop) Status Members No Information
--- NOTE | ~2025-04-29 | MR_ITS ---
EXAMINATION: MR abdomen wo/w con DATE: 04/29/2025 10:50 INDICATION: Left kidney mass. TECHNIQUE: Magnetic resonance imaging (MRI) of the abdomen was performed without and with 14 mL MultiHance intravenous contrast. COMPARISON: Abdomen MRI 05/11/2024 FINDINGS: The liver and spleen are normal. The gallbladder is absent. The pancreas, adrenal glands, and right kidney are normal. There is cortical thinning of left kidney. There is a 5 mm cyst in left kidney. There are no dilated loops of bowel. There are no pathologically enlarged lymph nodes. There is no free intraperitoneal fluid. IMPRESSION: 1. Small benign cyst in left kidney. Reviewed, dictated and finalized at location E.
--- OUTSIDE RECORDS SUMMARY | 2025-04-29 10:39 | XMS_ITS | Clinical Summary ---
Author Organization [place] [id number] [facility] Address [address] [place] [address] Care Team Providers Care White Shoe Examiner Name Role Phone Rose Bright [employer] Primary Care Provider + Allergies No known active allergies Medications losartan (COZAAR) 100 mg tablet Take 1 tablet (100 mg total) by mouth daily 3 Active metFORMIN XR (GLUCOPHAGE XR) 500 mg 24 hr tablet Take 1 tablet (500 mg total) by mouth daily with breakfast 3 Active pravastatin (PRAVACHOL) 40 mg tablet Take 1 tablet (40 mg total) by mouth daily 4 Active escitalopram (LEXAPRO) 10 mg tablet Take 1 tablet (10 mg total) by mouth daily 4 Active hydroCHLOROthia zide (MICROZIDE) 12.5 mg capsule Take 1 capsule (12.5 mg total) by mouth daily 4 Active Farxiga 10 mg tablet Take 1 tablet (10 mg total) by mouth daily 4 Active tirzepatide (MOUNJARO) 10 mg/0.5 mL pen injector once a week 4 Active cholecalciferol (VITAMIN D-3) 2000 unit capsule Take 2 capsules (4,000 Units total) by mouth daily Active glimepiride (AMARYL) 4 mg tabletIndicatio ns:type 2 diabetes mellitus Take 1 tablet (4 mg total) by mouth daily before breakfast Active Active Problems Problem Noted Date Diagnosed Date Iron deficiency anemia, unspecified 02/09/2024 Anemia in stage 3 chronic kidney disease 024 Renal cyst, left 11/11/20232023 Overview (06/05/2024): 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 Surgical History Surgery Date Site/Laterality Comments CARPAL TUNNEL RELEASE 07/25/2013 - 07/24/2014 SECTION 07/25/1988 - 07/24/1989 Medical History Medical History Date Comments Diabetes mellitus Chronic renal failure Family History Medical History Relation Name Comments Cancer Maternal Grandfather Stroke Maternal Grandmother Cancer Mother's Sister Relation Name Status Comments Maternal Grandfather Maternal Grandmother Mother's Sister Social History Tobacco Use Types Packs/Day Years Used Date Smoking Tobacco: Never Passive Smoke Exposure: Never Smokeless Tobacco: Never Tobacco Cessation:Counseling Given: Not Answered AUDIT-C Answer Date Recorded Q1: How often do you have a drink containing alc ohol? 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 Gender Identity Not on file Sexual Orientation Not on file Obstetrics History Last Filed Vital Signs Vital Sign Reading Time Taken Comments Blood Pressure 148/66 02/29/2024 9:20 AM CDT Pulse 75 02/29/2024 9:20 AM CDT Temperature 36.7 C (98.1 F) 02/29/2024 8:05 AM CDT Respiratory Rate 18 02/29/2024 9:05 AM CDT Oxygen Saturation 100% 02/29/2024 9:05 AM CDT Inhaled Oxygen Concentration - - Weight 69.9 kg (154 lb 1.6 oz) 05/11/2024 9:28 A M CDT Height 160 cm (5' 3) 05/11/2024 9:28 AM CDT Body Mass Index 27.3 05/11/2024 9:28 AM CDT Plan of Treatment Health Maintenance Due Date Last Done Comments Breast Cancer Screening-Mammogram 1955 Colon Cancer Screening-Colonoscopy 1955 Depression Screening 1956 Fall Risk Assessment 1955 Hepatitis C Screening 1956 Osteoporosis Screening-Bone Density Scan 1956 DTaP/Tdap/Td Vaccine (1 - Tdap) 12/18/1967 Hepatitis B Screening 1974 Pneumococcal vaccine 65+ (1 of 1 - PCV) 2006 Zoster Vaccine (1 of 2) 2006 Well Visit 65+ 2021 Covid-19 Vaccine (4 - 2024-2 6 season) 2025 07/30/2023, 03/06/2022, 10/02/2020 Influenza Vaccine (#1) 2025 , 05/28/2021, 05/16/2020, Additional history exists Insurance Care Teams White Shoe Examiner Relationship Specialty Start Date End Date Rose Bright NP PCP - General Nurse Practitioner 08/17/23
--- OUTSIDE RECORDS SUMMARY | 2025-04-29 10:39 | XMS_ITS | Clinical Summary ---
Author Organization [facility] Address [facility] [place] [address] Care Team Providers Care Websphere Commerce Architect Name Role Phone Nava Medley MD Primary Care Provider [phone] Allergies No known active allergies Medications FARXIGA 10 MG tablet Take 1 tablet (10 mg total) by mouth daily. 4 Active metFORMIN ER (GLUCOPHAGE-XR) 500 MG 24 hr tablet Take 2 tablets (1,000 mg total) by mouth 2 (two) times daily. Active pravastatin (PRAVACHOL) 40 MG tablet Take 1 tablet (40 mg total) by mouth daily. 4 Active hydroCHLOROthia zide (MICROZIDE) 12.5 MG capsule Take 1 capsule (12.5 mg total) by mouth daily. 4 Active losartan (COZAAR) 100 MG tablet Take 1 tablet (100 mg total) by mouth daily. 3 Active escitalopram (LEXAPRO) 10 MG tablet Take 1 tablet (10 mg total) by mouth daily. 4 Active MOUNJARO 10 MG/0.5ML injection once a week. Active HYDROcodone-julio césar taminophen (NORCO) 5-325 MG tabletIndicatio ns:Acute Pain < 7 Day Supply Take 1 tablet by mouth every 6 (six) hours as needed for Pain. Indications: Acute Pain < 7 Day Supply For Moderate Pain 8 tablet 4 Active Additional Information Patient not taking.Reported on 03/23/2024 Active Problems Problem Noted Date Diagnosed Date Gallbladder polyp 01/11/2024 Family History Medical History Relation Comments Breast Cancer Maternal Aunt Bone cancer Maternal Grandfather Relation Status Comments Maternal Aunt Maternal Grandfather Social History Tobacco Use Types Packs/Day Years Used Date Smoking Tobacco: Never Smokeless Tobacco: Never Tobacco Cessation:Counseling Given: Not Answered Alcohol Use Standard Drinks/Week Comments Never 0 (1 standard drink = 0.6 oz pur e alcohol) Comments No Sex and Gender Information Value Date Recorded Sex Assigned at Not on file Legal Sex Female 10:51 AM CDT Gender Identity Not on file Sexual Orientation Not on file Last Filed Vital Signs Vital Sign Reading Time Taken Comments Blood Pressure 125/76 03/23/2024 12:46 PM CDT Pulse 81 03/23/2024 12:46 PM CDT Temperature 36.6 C (97.9 F) 03/23/2024 12:46 PM CDT Respiratory Rate 16 03/23/2024 12:46 PM CDT Oxygen Saturation 100% 03/23/2024 12:46 PM CDT Inhaled Oxygen Concentration - - Weight 70.3 kg (155 lb) 03/08/2024 6:16 AM CDT Height 160 cm (5' 3) 03/08/2024 6:16 AM CDT Body Mass Index 27.46 03/08/2024 6:16 AM CDT Plan of Treatment Health Maintenance Due Date Last Done Comments Colorectal Cancer Screening Colonoscopy (10 Years) 1956 Hepatitis C 1974 DTaP, Tdap and Td Vaccines (1 - Tdap) 12/18/1975 Mammogram Screening 1996 Zoster Vaccines (1 of 2) 2006 Annual Medicare Wellness Visit 2021 Dexa Scan (General) 2021 PHQ-2 (Physician [place]) 07/25/2024 COVID-19 Vaccine ( season) 2025 07/30/2023, 03/06/2022, 10/02/2020 Influenza Adult (#1) 2025 05/28/2021, 05/16/2020, 07/02/2016, Additional history exists Pneumococcal Vaccine: 50+ Years Completed 08/26/2023 RSV Immunization or 60+ Years Completed 08/26/2023 Meningococcal B Vaccine Aged Out No l onger eligible based on patient's age to complete this topic Meningococcal Vaccine Aged Out No nahed shahid eligible based on patient's age to complete this topic RSV Immunizations Under 20 Months Aged Out No longer eligible based on patient's age to complete this topic Insurance [facility] MEDICARE Care Teams Websphere Commerce Architect Relationship Specialty [place] [address] [place] [address] PCP - General SURGERY 02/16/24
== END 2025-04-29 09:44 | disposition home or self-care (01) ==
PROVIDERS: PCP Nurse Practitioner Family; Visit Provider Urology
DX: N28.89 Other specified disorders of kidney and ureter (principal); N28.1 Cyst of kidney, acquired
CPT/HCPCS: 74183; A9577